=== PATIENT | female | born 1945 | race African-American/Black ===

== ENCOUNTER 2018-10-18 14:16 | Observation (INO) | payer OTHER, MEDICARE ==
[2018-10-18 14:33] VITALS: BMI 25.7
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
[2018-10-18 16:14] LABS: URINE APPEARANCE CLEAR; URINE BILIRUBIN NEGATIVE (<2.0 mg/dL); URINE COLOR LTYELLOW; URINE GLUCOSE (UA) NEGATIVE (NEGATIVE); URINE KETONE NEGATIVE (NEGATIVE); URINE LEUK ESTERASE NEGATIVE (NEGATIVE); URINE NITRITE NEGATIVE (NEGATIVE); URINE PROTEIN NEGATIVE (NEGATIVE); URINE UROBILINOGEN NEGATIVE mg/dL (0.2-1.0)
[2018-10-18 16:18] LABS: EPI CELLS RARE /HPF (FEW); URINE HYALINE CAST 4 /lpf; URINE MUCUS RARE
[2018-10-18 16:18] LABS: HEMATOCRIT 29.3 % (32.4-45.2); HEMOGLOBIN 10.3 GM/dL (10.7-15.3); MCH 29.6 pg (25.7-33.7); MCHC 35.1 g/dl (32.0-36.0); MEAN CELL VOLUME 84.3 fl (80-96); MEAN PLT VOLUME 7.1 fl (7.5-11.1); PLATELET COUNT 223 K/MM3 (134-434); RBC 3.47 M/mm3 (3.60-5.2); RDW 14.3 % (11.6-15.6); WHITE BLOOD COUNT 4.8 K/mm3 (4.0-10.0)
[2018-10-18 16:51] LABS: ALBUMIN 3.3 g/dl (3.4-5.0); ALK PHOS 76 U/L (45-117); ANION GAP 8 MMOL/L (8-16); BILIRUBIN,TOTAL 0.2 mg/dL (0.2-1); BLOOD UREA NITROGEN 33 mg/dL (7-18); CALCIUM 8.7 mg/dL (8.5-10.1); CHLORIDE 106 mmol/L (98-107); CO2 26 mmol/L (21-32); CREATININE 1.4 mg/dL (0.55-1.3); GLUCOSE,RANDOM 110 mg/dL (74-106); SGOT/AST 29 U/L (15-37); SGPT/ALT 27 U/L (13-61); SODIUM 140 mmol/L (136-145); TOT PROT 6.9 g/dl (6.4-8.2)
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
[2018-10-18] MEDS ORDERED: SODIUM CHLORIDE 1,000 ML IV SCH (21:30)
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
[2018-10-19] MEDS ORDERED: GABAPENTIN 300 MG CAPSULE (FP) PO ONE (02:29)
[2018-10-19] MEDS ORDERED: NEBIVOLOL 10 MG TABLET (FP) PO SCH ×2 (02:30→22:00)
[2018-10-19 05:55] LABS: BASO % 0.5 % (0-2.0); EOS % 4.7 % (0-4.5); HEMATOCRIT 30.8 % (32.4-45.2); HEMOGLOBIN 10.2 GM/dL (10.7-15.3); LYMPH % 36.1 % (8-40); MCH 27.9 pg (25.7-33.7); MEAN CELL VOLUME 84.3 fl (80-96); MEAN PLT VOLUME 6.9 fl (7.5-11.1); MONO % 7.7 % (3.8-10.2); PLATELET COUNT 214 K/MM3 (134-434); RBC 3.65 M/mm3 (3.60-5.2); RDW 14.2 % (11.6-15.6); WHITE BLOOD COUNT 5.7 K/mm3 (4.0-10.0)
[2018-10-19] MEDS ORDERED: HEPARIN NA (PORCINE) 5,000 UNITS/ML 1ML VIAL ONE (06:08)
[2018-10-19 06:28] LABS: CHOLESTEROL 212 mg/dL (50-200); HDL CHOLESTEROL 93 mg/dL (40-60); TRIGLYCERIDES 53 mg/dL (0-150)
[2018-10-19] MEDS: HEPARIN NA (PORCINE) 5,000 UNITS/ML 1ML VIAL SQ SCH ×2 (06:33→14:13)
[2018-10-19 06:38] LABS: ALBUMIN 3.2 g/dl (3.4-5.0); ALK PHOS 73 U/L (45-117); ANION GAP 8 MMOL/L (8-16); BILIRUBIN,TOTAL 0.3 mg/dL (0.2-1); BLOOD UREA NITROGEN 25 mg/dL (7-18); CALCIUM 8.6 mg/dL (8.5-10.1); CHLORIDE 106 mmol/L (98-107); CO2 26 mmol/L (21-32); CREATININE 1.1 mg/dL (0.55-1.3); GLUCOSE,RANDOM 89 mg/dL (74-106); MAGNESIUM 2.1 mg/dL (1.8-2.4); PHOSPHOROUS 4.1 mg/dL (2.5-4.9); POTASSIUM 3.8 mmol/L (3.5-5.1); SGOT/AST 29 U/L (15-37); SGPT/ALT 26 U/L (13-61); SODIUM 139 mmol/L (136-145); TOT PROT 6.7 g/dl (6.4-8.2)
--- NOTE | 2018-10-19 08:53 | PN ---
Progress Note (short form) - Note Progress Note: Dr. Robles to document today. Having Echo; was difficult to arouse from sleep yesterday.
[2018-10-19 09:24] VITALS: TEMP 98.5
[2018-10-19] MEDS ORDERED: MULTIVITAMINS (DAILY MVI) TABLET (FP) PO SCH (10:00)
--- NOTE | 2018-10-19 11:10 | ECHO ---
Version: 1 Name: SULAIMAN DOMINGUEZ Exam: Adult Echocardiogram Study Date: 10/19/2018, 8:09 AM Age: 73 Years MMode/2D Measurements & Calculations IVSd: 0.91 cm LVIDs: 3.2 cm LVIDd: 5.2 cm LVPWd: 0.88 cm ACS: 1.54 cm Ao root diam: 2.9 cm LA dimension: 4.0 cm Doppler Measurements & Calculations MV E max fady: 59.2 cm/sec Med E/e': 11.9 MV A max fady: 57.8 cm/sec Med Peak E' Fady: 5.0 cm/sec MV E/A: 1.03 Lat E/e': 6.5 Lat Peak E' Fady: 9.1 cm/sec MR max P.2 mmHg Ao max P.3 mmHg Ao mean P.0 mmHg Ao V2 max: 134.8 cm/sec PI end-d fady: 126.2 cm/sec TR max fady: 195.1 cm/sec TR max P.4 mmHg Procedure A two-dimensional transthoracic echocardiogram with color flow and Doppler was performed. Left Ventricle The left ventricular size, thickness and function are normal. The left ventricular ejection fraction is normal. E/A reversal consistent with but not diagnostic of poor LV compliance. The left ventricular wall motion is normal. Right Ventricle The right ventricle is normal in size and function. Atria The left atrium is mildly dilated. The right atrium is mildly dilated. Mitral Valve There is mild mitral valve thickening. There is no mitral valve stenosis. There is moderate to sever e mitral regurgitation. Tricuspid Valve The tricuspid valve is normal in structure and function. There is no tricuspid stenosis. There is mi ld tricuspid regurgitation. Right ventricular systolic pressure is normal. Aortic Valve The aortic valve is normal in structure and function. No hemodynamically significant valvular aortic stenosis. No aortic regurgitation is present. Pulmonic Valve The pulmonic valve is not well visualized. There is no pulmonic valvular stenosis. Moderate pulmonic valvular regurgitation. Great Vessels The aortic root is normal size. Pericardium/Pleura There is no pericardial effusion. Summary Statements The left ventricular size, thickness and function are normal The left ventricular ejection fraction is normal. The right ventricle is normal in size and function. There is mild mitral valve thickening. There is moderate to severe mitral regurgitation. The left atrium is mildly dilated. The right atrium is mildly dilated. The left ventricular wall motion is normal. There is mild tricuspid regurgitation. Right ventricular systolic pressure is normal. E/A reversal consistent with but not diagnostic of poor LV compliance MD Ramirez Austin 10/19/2018, 11:10 AM Ordering Physician: JAMES ZUÑIGA Performed By: Destiny Jackson
--- NOTE | 2018-10-19 12:54 | DS ---
Physical Examination Vital Signs: Vital Signs Temperature 98.5 F 10/19/18 09:23 Pulse Rate 64 10/19/18 09:35 Respiratory Rate 16 10/19/18 09:35 Blood Pressure 147/75 10/19/18 09:35 O2 Sat by Pulse Oximetry (%) 99 10/19/18 09:35 Constitutional: Yes: Well Nourished, No Distress, Calm Cardiovascular: Yes: WNL, Regular Rate and Rhythm Respiratory: Yes: WNL, Regular, CTA Bilaterally. No: Accessory Muscle Use, Tachypnea, Wheezes Gastrointestinal: Yes: WNL, Normal Bowel Sounds, Soft. No: Distention, Tenderness, Vomiting Renal/: Yes: WNL Musculoskeletal: Yes: WNL Extremities: Yes: WNL Edema: No Integumentary: Yes: WNL Neurological: Yes: WNL, Alert, Oriented Psychiatric: Yes: WNL, Alert, Oriented Labs: CBC, BMP 10/19/18 05:25 10/19/18 05:25 Discharge Summary Reason For Visit: SYNCOPE Current Active Problems Syncope (Acute) Hospital Course: 73 year old female admitted for evaluation of reduced responsiveness at home. All cardiac/neuro work up negative. Head CT/echo, chest xray without acute findings. Mild jeffrey noted which resolved w/ ivf. Otherwise, pt without any complaints, vitals stable, labs unremarkable. Pt requesting to go home. Pt is medically stable for discharge home. Follow up as directed Condition: Stable - Instructions Diet, Activity, Other Instructions: resume activity, diet as prior continue home meds f/u as directed Referrals: Devaughn Sandoval MD [Primary Care Provider] - 1 Week Disposition: HOME - Home Medications Comprehensive Discharge Medication List: Ambulatory Orders Aspirin [ASA -] 81 mg PO DAILY 05/21/13 Cholecalciferol (Vitamin D3) [Vitamin D] 1,000 unit PO DAILY #0 capsule Multivitamins [Multivit ([facility] Formulary)] 1 each PO DAILY #1 tab 05/29/13 Olmesartan/Hydrochlorothiazide [Benicar Hct 40-12.5MG Tab -] 1 tab PO DAILY #0 tablet 05/29/13 [place] Oil/[place]-3 Fatty Acids [Fish Oil 500 mg Softgel] 2 each PO DAILY #0 capsule 05/29/13 Gabapentin [Neurontin -] 200 mg PO BID 10/18/18 Gabapentin [Neurontin] 300 mg PO HS 10/18/18 Nebivolol [Bystolic -] 20 mg PO HS 10/18/18 Pramipexole Dihydrochloride [Mirapex -] 0.5 mg PO DAILY 10/18/18 Pramipexole Dihydrochloride [Mirapex -] 1.5 mg PO DAILY 10/19/18
[2018-10-19 15:43] VITALS: BP 120/66; PULSE 73
--- NOTE | 2018-10-19 16:53 | EKG ---
Test Reason : Blood Pressure : / mmHG Vent. Rate : 068 BPM Atrial Rate : 068 BPM P-R Int : 190 ms QRS Dur : 086 ms QT Int : 400 ms P-R-T Axes : 068 015 028 degrees QTc Int : 425 ms NORMAL SINUS RHYTHM T WAVE ABNORMALITY, CONSIDER ANTERIOR ISCHEMIA ABNORMAL ECG WHEN COMPARED WITH ECG OF 16-NOV-2013 10:29, NO SIGNIFICANT CHANGE WAS FOUND Confirmed by JANELLE SCHULTZ MD ([id number]) on 10/19/2018 4:53:29 PM Referred By: Confirmed By:JANELLE SCHULTZ MD
[2018-10-19] MEDS ORDERED: GABAPENTIN 300 MG CAPSULE (FP) PO SCH (22:00)
[2018-10-20 04:21] LABS: SERUM IRON SATURATION 17 % (15-55); TOTAL IRON BINDING CAPACITY 345 ug/dL (250-450); UIBC 288 ug/dL (118-369)
== END 2018-10-19 15:30 | disposition home or self-care (01) ==
LOC: JER 14:16 → JERBED 18:05 → UNDOADMOB 18:15
PROVIDERS: ADMIT Internal Medicine; ATTEND Internal Medicine
PROC: 3E0337Z Introduction of Electrolytic and Water Balance Substance into Peripheral Vein, Percutaneous Approach (ICD-10-PCS; principal; 2018-10-18)
DX: R55 Syncope and collapse (principal); I10 Essential (primary) hypertension; K21.9 Gastro-esophageal reflux disease without esophagitis; D64.89 Other specified anemias; N17.9 Acute kidney failure, unspecified; Z91.041 Radiographic dye allergy status; Z79.82 Long term (current) use of aspirin; Z98.1 Arthrodesis status
CPT/HCPCS: 36415; 70450-TC; 71045-TC-FY; 80053; 80061; 81003; 81015; 82728; 83540; 83550; 83721; 83735; 84100; 84443; 84466; 84484; 85025; 85027; 85044; 93005; 93010; 93306-TC; 99285-25; G0378; J1644; J7030

== ENCOUNTER 2019-04-11 11:34 | Emergency (ER) | payer OTHER, MEDICARE | END 2019-04-11 14:27 | disposition home or self-care (01) | LOC: FER 11:34 ==

== ENCOUNTER 2019-09-12 17:01 | Emergency (ER) | payer OTHER, MEDICARE ==
[2019-09-12 17:11] VITALS: BMI 24.4
--- NOTE | 2019-09-12 17:50 | PDOC ---
Attending Attestation - Resident Resident Name: Celeste Gamboa - ED Attending Attestation I have performed the following: I have examined & evaluated the patient, The case was reviewed & discussed with the resident, I agree w/resident's findings & plan, Exceptions are as noted - HPI HPI: 09/12/19 18:00 Ms Rossi HTN, GERD p/w a period of less responsiveness while at home today Patient was in her usual state of health all day, was out shopping with her sisters. She had a cup of coffee in the morning, and a small cup of soda with her meal After she arrived home, her sister found her slumped over in the chair, unresponsive According to the patient, she heard everything that her sister said and in fact attempted to respond According to the patient's sister, the patient had no verbal responsiveness EMS was called and upon their arrival, her systolic blood pressure was 70 IV was placed, patient was started on IV fluid She currently states she feels much better She denies any chest pain, palpitations, headache, focal weakness or numbness No recent fevers or chills No new shortness of breath No recent travel 09/12/19 18:18 - Physicial Exam PE: 09/12/19 17:50 GENERAL: The patient is in no acute distress, ambulatory with a steady gait. ENT: Ears normal, nares patent, oropharynx clear without exudates. Moist mucous membranes. NECK: Normal range of motion, supple LUNGS: Breath sounds equal, clear to auscultation bilaterally. No wheezes, and no crackles. HEART:Regular rate and rhythm, normal S1 and S2 without murmur, rub or gallop. ABDOMEN: Soft, nontender, normoactive bowel sounds. EXTREMITIES: Normal range of motion, no edema. NEUROLOGICAL: Cranial nerves II through XII grossly intact. Normal speech. No focal neurological deficits. SKIN: Warm, Dry, normal turgor, no rashes or lesions noted. 09/12/19 18:02 - Medical Decision Making 09/12/19 18:31 73-year-old female presenting to the emergency department after what is possibly vasovagal syncope Differential diagnosis also includes arrhythmia, ACS, dehydration We will do: Labs EKG Patient refusing head CT Patient refusing admission Labs pending Pt signed out to Dr Gerard
[2019-09-12 17:55] VITALS: BP 158/94; PULSE 80; TEMP 97.9
--- NOTE | 2019-09-12 18:35 | PDOC ---
History of Present Illness - General Chief Complaint: Blood Pressure Problem Stated Complaint: BLOOD PRESSURE PROBLEM Time Seen by Provider: 09/12/19 17:13 - History of Present Illness Initial Comments: HPI: 73yo F with PMH of HTN, GERD, multiple back surgeries presenting after a period of responsiveness. Sister is at the bedside providing collateral history. Patient states that she spent the morning outside of the house and shopping. She did eat today, including a [employer] burger/soda/fries, but feels she did not drink an adequate amount. In addition, patient is on several medications which make her feel drowsy. The patient and her sister came home. Her sister reports that she found the patient slumped in a chair and appeared "lethargic." Despite calling her name several times, the patient did not respond. The patient reports remembering her sister call her name and states she did in fact respond saying "I can't hear you because of the TV" however the sister does not recall this. The sister called - and EMS noted patient's blood pressure to be low, 70s systolic. Patient feels at her baseline. Denies chest pain or shortness of breath. No recent travel or sick contacts. No fevers or chills. PCP: Dr. Sandoval Cardio: Dr. Joiner ROS: Constitutional: no fever, no chills HEENT: no throat pain, no dysphagia Cardiovascular: no chest pain, no palpitations Respiratory: no cough, no cyanosis Gastrointestinal: no abdominal pain, no nausea Genitourinary: no dysuria, no hematuria Musculoskeletal: no myalgia, no arthralgia Skin: no rash, no itching Neurologic: no headache, no weakness PE: General: Awake, alert, and fully oriented, in no acute distress Head: No signs of trauma Eyes: EOMI, sclera anicteric ENT: Moist mucus membranes Neck: Normal ROM, supple Lungs: Lungs clear, Normal breath sounds Cardio: Regular rhythm, S1 and S2 present Abdomen: Soft, nontender. No guarding, no rebound, no masses Extremities: Normal range of motion, Distal pulses present SKIN: Warm, Dry, normal turgor Neurologic: Cranial nerves II through XII intact. Normal speech, sensation, strength, coordination, and gait. ED Course/MDM: DDX including but not limited to dehydration, medication adverse affect, metabolic derangement, anemia, vasovagal syncope, cardiogenic syncope, metabolic syncope, neurogenic syncope, postural syncope Triage VSS Labs, EKG, CXR Patient given 500cc fluids by EMS (which may be confounding orthostatics test) Supine BP: 157/81 HR: 80 Sitting BP: 158/94 HR: 79 Standing BP: 173/89 HR: 83 Negative for orthostatic hypotension Patient is adamant that she will not stay overnight in the hospital; amenable to evaluation but states, "I want to be home tonight." 09/12/19 18:19 EKG: rate 76, QTc 429, NSR 09/12/19 18:37 CBC WBC 6.0 K/mm3 (4.0-10.0) 09/12/19 18:40 RBC 3.79 M/mm3 (3.60-5.2) 09/12/19 18:40 Hgb 10.8 GM/dL (10.7-15.3) 09/12/19 18:40 Hct 33.2 % (32.4-45.2) 09/12/19 18:40 MCV 87.4 fl (80-96) 09/12/19 18:40 MCH 28.4 pg (25.7-33.7) 09/12/19 18:40 MCHC 32.5 g/dl (32.0-36.0) 09/12/19 18:40 RDW 13.8 % (11.6-15.6) 09/12/19 18:40 Plt Count 221 K/MM3 (134-434) 09/12/19 18:40 MPV 7.6 fl (7.5-11.1) D 09/12/19 18:40 Absolute Neuts (auto) 4.0 K/mm3 (1.5-8.0) 09/12/19 18:40 Neutrophils % 67.1 % (42.8-82.8) D 09/12/19 18:40 Lymphocytes % 22.2 % (8-40) D 09/12/19 18:40 Monocytes % 8.5 % (3.8-10.2) 09/12/19 18:40 Eosinophils % 1.8 % (0-4.5) 09/12/19 18:40 Basophils % 0.4 % (0-2.0) 09/12/19 18:40 Nucleated RBC % 0 % (0-0) 09/12/19 18:40 No leukocytosis or anemia CMP Sodium 140 mmol/L (136-145) 09/12/19 19:00 Potassium 3.9 mmol/L (3.5-5.1) 09/12/19 19:00 Chloride 107 mmol/L (98-107) 09/12/19 19:00 Carbon Dioxide 26 mmol/L (21-32) 09/12/19 19:00 Anion Gap 7 MMOL/L (8-16) L 09/12/19 19:00 BUN 23.5 mg/dL (7-18) H 09/12/19 19:00 Creatinine 1.3 mg/dL (0.55-1.3) 09/12/19 19:00 Est GFR (CKD-EPI)AfAm 46.47 09/12/19 19:00 Est GFR (CKD-EPI)NonAf 40.10 09/12/19 19:00 Random Glucose 101 mg/dL (74-106) 09/12/19 19:00 Calcium 9.1 mg/dL (8.5-10.1) 09/12/19 19:00 Total Bilirubin 0.2 mg/dL (0.2-1) 09/12/19 19:00 AST 29 U/L (15-37) 09/12/19 19:00 ALT 29 U/L (13-61) 09/12/19 19:00 Alkaline Phosphatase 76 U/L (45-117) 09/12/19 19:00 Creatine Kinase 220 U/L (26-192) H 09/12/19 18:40 Creatine Kinase Index 1.6 % (0.0-5.0) 09/12/19 18:40 CK-MB (CK-2) 3.7 ng/mL (0.5-3.6) H 09/12/19 18:40 Troponin I < 0.02 ng/ml (0.00-0.05) 09/12/19 18:40 B-Natriuretic Peptide 2157.1 pg/ml (5-450) H 09/12/19 18:40 Total Protein 6.9 g/dl (6.4-8.2) 09/12/19 19:00 Albumin 3.5 g/dl (3.4-5.0) 09/12/19 19:00 Electrolytes unremarkable Normal Cr no Transaminitis Tpn undetectable BNP elevated; patient has a history of CHF, I do not see overt signs of overload on the physical exam UA normal CXR: "EXAM#: TYPE/EXAM: RESULT: [id number] RAD/CHEST PA LAT Chest: Possible syncope 2 views of the chest have been submitted. There are clear lungs, normal mediastinum sharp angles. The bones and soft tissues are intact. There is lower spinal fusion hardware. Since 10/18/2018, there is a better inspiration and no sign of an acute process. " Though workup is negative, history is concerning for syncope. Given age and risk factors, I recommended telemetry observation. Patient is of sound mind and has capacity to make decisions. Benefits/risks explained to patient and she voiced understanding. Patient decided to leave against medical advice. To sign AMA form. 09/12/19 20:32 Patient signed AMA form Left AMA 09/12/19 20:53 Past History - Past Medical History Allergies/Adverse Reactions: Allergies Allergy/AdvReac Type Severity Reaction Status Date / Time No Known Drug Allergies Allergy Verified 10/18/18 21:25 CAT SCAN DYE Allergy Intermediate Rash Uncoded 10/18/18 14:25 iv dye Allergy Mild Hives Uncoded 10/18/18 14:25 Home Medications: Ambulatory Orders Aspirin [ASA -] 81 mg PO DAILY 05/21/13 Cholecalciferol (Vitamin D3) [Vitamin D] 1,000 unit PO DAILY #0 capsule Multivitamins [Multivit ([facility] Formulary)] 1 each PO DAILY #1 tab 05/29/13 Olmesartan/Hydrochlorothiazide [Benicar Hct 40-12.5MG Tab -] 1 tab PO DAILY #0 tablet 05/29/13 Gabapentin [Neurontin -] 300 mg PO HS 10/18/18 Nebivolol [Bystolic -] 20 mg PO HS 10/18/18 Pramipexole Dihydrochloride [Mirapex -] 0.5 mg PO DAILY 10/18/18 Furosemide [Lasix] 20 mg PO DAILY 04/11/19 Potassium Chloride [K-Tab ER] 10 meq PO DAILY 04/11/19 Ranitidine HCl [Zantac] 150 mg PO DAILY 04/11/19 Anemia: Yes Asthma: No Cancer: No Cardiac Disorders: Yes (HYPERTENSION) CVA: No COPD: No CHF: No Dementia: No Diabetes: No GI Disorders: Yes (ZANTAC FOR PEPTIC ULCERS 2010) Disorders: No HTN: Yes Hypercholesterolemia: No Liver Disease: No Seizures: No Thyroid Disease: No - Surgical History Abdominal Surgery: No Appendectomy: No Cardiac Surgery: No Cholecystectomy: No Lung Surgery: No Neurologic Surgery: Yes (LAMINECTOMY X2) Orthopedic Surgery: Yes (SPINAL FUSION 2009/BILATERAL BUNIONECTOMY ) - Psycho Social/Smoking Cessation Hx Smoking Status: No Smoking History: Never smoked Have you smoked in the past 12 months: No Number of Cigarettes Smoked Daily: 0 If you are a former smoker, when did you quit?: 1985 Hx Alcohol Use: Yes Drug/Substance Use Hx: No Substance Use Type: Alcohol Hx Substance Use Treatment: No *Physical Exam - Vital Signs Last Vital Signs Temp Pulse Resp BP Pulse Ox 97.9 F 80 12 158/94 100 09/12/19 17:53 09/12/19 17:53 09/12/19 17:53 09/12/19 17:53 09/12/19 17:53 ED Treatment Course - LABORATORY CBC & Chemistry Diagram: 09/12/19 18:40 09/12/19 19:00 - RADIOLOGY Radiology Studies Ordered: Category Date Time Status CHEST PA & LAT [RAD] Stat Radiology 09/12/19 17:55 Ordered Discharge - Discharge Information Problems reviewed: Yes Clinical Impression/Diagnosis: Lethargy Disposition: AGAINST MEDICAL ADVICE - Follow up/Referral - Patient Discharge Instructions Additional Instructions: As discussed you may have undiagnosed illness or medical diagnosis that if left untreated can lead to multiple complications including, but not limited to permanent disability and . Should you reconsider you should return to the emergency department for evaluation. Follow-up with your primary care provider within 72 hours to discuss this ED visit and to further evaluate your symptoms. Call today or tomorrow morning and make an appointment. Your workup is not complete until you do so. Immediate medical attention is required if you have: any chest pain, palpitations, shortness of breath, severe headaches, changes in vision, episodes of fainting, focal numbness or weakness, any severe abdominal pain, any black tarry stool, or any new or concerning symptoms. If you think you are having an emergency, call for emergency medical services or present to the emergency department right away. - Post Discharge Activity
[2019-09-12 19:17] LABS: BASO % 0.4 % (0-2.0); EOS % 1.8 % (0-4.5); HEMATOCRIT 33.2 % (32.4-45.2); HEMOGLOBIN 10.8 GM/dL (10.7-15.3); LYMPH % 22.2 % (8-40); MCH 28.4 pg (25.7-33.7); MCHC 32.5 g/dl (32.0-36.0); MEAN CELL VOLUME 87.4 fl (80-96); MEAN PLT VOLUME 7.6 fl (7.5-11.1); MONO % 8.5 % (3.8-10.2); NEUT % 67.1 % (42.8-82.8); PLATELET COUNT 221 K/MM3 (134-434); RBC 3.79 M/mm3 (3.60-5.2); RDW 13.8 % (11.6-15.6)
[2019-09-12 19:30] LABS: PROTHROMBIN TIME (PATIENT) 11.8 SEC (9.7-13.0)
[2019-09-12 19:37] LABS: URINE APPEARANCE CLEAR; URINE BILIRUBIN NEGATIVE (NEGATIVE); URINE COLOR YELLOW; URINE GLUCOSE (UA) NEGATIVE (NEGATIVE); URINE KETONE NEGATIVE (NEGATIVE); URINE LEUK ESTERASE NEGATIVE (NEGATIVE); URINE NITRITE NEGATIVE (NEGATIVE); URINE PROTEIN NEGATIVE (NEGATIVE); URINE UROBILINOGEN 0.2 mg/dL (0.2-1.0)
[2019-09-12 19:38] LABS: N-TERMINAL BNP 2157.1 pg/ml (5-450)
[2019-09-12 20:00] LABS: ALBUMIN 3.5 g/dl (3.4-5.0); BILIRUBIN,TOTAL 0.2 mg/dL (0.2-1); BLOOD UREA NITROGEN 23.5 mg/dL (7-18); CALCIUM 9.1 mg/dL (8.5-10.1); CREATININE 1.3 mg/dL (0.55-1.3); POTASSIUM 3.9 mmol/L (3.5-5.1); TOT PROT 6.9 g/dl (6.4-8.2)
--- NOTE | 2019-09-13 12:47 | EKG ---
Test Reason : Blood Pressure : / mmHG Vent. Rate : 076 BPM Atrial Rate : 076 BPM P-R Int : 170 ms QRS Dur : 084 ms QT Int : 386 ms P-R-T Axes : 067 030 051 degrees QTc Int : 434 ms NORMAL SINUS RHYTHM POSSIBLE LEFT ATRIAL ENLARGEMENT BORDERLINE ECG WHEN COMPARED WITH ECG OF 11-APR-2019 12:04, NO SIGNIFICANT CHANGE WAS FOUND Confirmed by PETTY SUGGS, MARIELLA ([id number]) on 09/13/2019 12:46:58 PM Referred By: Confirmed By:MARIELLA DOVE MD
== END 2019-09-12 21:42 | disposition left against medical advice (07) ==
LOC: JER 17:01
DX: I95.9 Hypotension, unspecified (principal); R53.83 Other fatigue; I10 Essential (primary) hypertension; D64.9 Anemia, unspecified; Z87.11 Personal history of peptic ulcer disease; Z98.1 Arthrodesis status; Z91.041 Radiographic dye allergy status
CPT/HCPCS: 36415; 71046-TC-FY; 80053; 81003; 82550; 82553; 83880; 84484; 85025; 85610; 87086; 93005; 93010; 99284-25

== ENCOUNTER 2020-09-11 19:40 | Emergency (ER) | payer OTHER, MEDICARE | END 2020-09-11 19:45 | disposition home or self-care (01) | LOC: JVIRT 19:40 | DX: Z03.818 Encounter for observation for suspected exposure to other biological agents ruled out (principal) | CPT/HCPCS: C9803; Q3014-GT; U0003 ==

== ENCOUNTER 2020-11-12 19:10 | Inpatient (IN) | payer OTHER, MEDICARE ==
[2020-11-12 19:48] VITALS: BMI 25.0
[2020-11-12] MEDS ORDERED: FUROSEMIDE 40 MG/4 ML INJECTABLE VIAL IVPUSH ONE (20:41)
[2020-11-12] MEDS ORDERED: FUROSEMIDE 40 MG/4 ML INJECTABLE VIAL ONE (21:33)
[2020-11-12 21:43] LABS: INR 1.03 (0.83-1.09); PROTHROMBIN TIME (PATIENT) 12.5 SEC (9.7-13.0)
[2020-11-12 21:46] LABS: ACTIVATED PTT 28.6 SECONDS (25.2-36.5)
[2020-11-12 21:48] LABS: POTASSIUM 3.8 mmol/L (3.5-5.1)
[2020-11-12 21:50] LABS: CALCIUM 9.2 mg/dL (8.5-10.1)
[2020-11-12 21:51] LABS: ALBUMIN 3.8 g/dl (3.4-5.0); BLOOD UREA NITROGEN 20.2 mg/dL (7-18)
[2020-11-12 21:54] LABS: CREATININE 1.2 mg/dL (0.55-1.3)
[2020-11-12 21:56] LABS: BILIRUBIN,TOTAL 0.4 mg/dL (0.2-1); TOT PROT 7.8 g/dl (6.4-8.2)
[2020-11-12 21:59] LABS: N-TERMINAL BNP 11169.9 pg/ml (5-450)
[2020-11-12 23:39] LABS: URINE APPEARANCE CLEAR; URINE BILIRUBIN NEGATIVE (NEGATIVE); URINE COLOR YELLOW; URINE GLUCOSE (UA) NEGATIVE (NEGATIVE); URINE KETONE NEGATIVE (NEGATIVE); URINE LEUK ESTERASE NEGATIVE (NEGATIVE); URINE NITRITE NEGATIVE (NEGATIVE); URINE PROTEIN NEGATIVE (NEGATIVE); URINE UROBILINOGEN 0.2 mg/dL (0.2-1.0)
[2020-11-13] MEDS ORDERED: FUROSEMIDE 40 MG/4 ML INJECTABLE VIAL IVPUSH ONE (00:06)
[2020-11-13] MEDS ORDERED: FUROSEMIDE 40 MG/4 ML INJECTABLE VIAL ONE (01:06)
[2020-11-13] MEDS ORDERED: ACETAMINOPHEN 500 MG TABLET (FP) PO ONE (04:49)
[2020-11-13 06:57] LABS: BASO % 0.6 % (0-2.0); EOS % 3.1 % (0-4.5); HEMATOCRIT 31.7 % (32.4-45.2); HEMOGLOBIN 10.5 GM/dL (10.7-15.3); LYMPH % 27.1 % (8-40); MCH 28.5 pg (25.7-33.7); MCHC 33.2 g/dl (32.0-36.0); MEAN CELL VOLUME 85.7 fl (80-96); MEAN PLT VOLUME 7.6 fl (7.5-11.1); MONO % 9.8 % (3.8-10.2); NEUT % 59.4 % (42.8-82.8); PLATELET COUNT 204 K/MM3 (134-434); WHITE BLOOD COUNT 5.7 K/mm3 (4.0-10.0)
[2020-11-13] MEDS: GABAPENTIN 300 MG CAPSULE PO SCH ×2 (07:13→21:15)
[2020-11-13 07:35] LABS: IRON SERUM 39 ug/dL (50-175); TOTAL IRON BINDING CAPACITY 364 ug/dL (250-450)
[2020-11-13 07:42] LABS: POTASSIUM 3.6 mmol/L (3.5-5.1)
[2020-11-13 07:47] LABS: ALBUMIN 3.6 g/dl (3.4-5.0); CALCIUM 8.8 mg/dL (8.5-10.1)
[2020-11-13 07:48] LABS: BLOOD UREA NITROGEN 21.8 mg/dL (7-18); MAGNESIUM 2.1 mg/dL (1.8-2.4)
[2020-11-13 07:50] LABS: CREATININE 1.3 mg/dL (0.55-1.3); PHOSPHOROUS 4.2 mg/dL (2.5-4.9)
[2020-11-13 07:51] LABS: BILIRUBIN,TOTAL 0.4 mg/dL (0.2-1); TOT PROT 7.4 g/dl (6.4-8.2)
[2020-11-13] MEDS: ASPIRIN COATED 81 MG TABLET.EC PO SCH (09:28)
[2020-11-13] MEDS: FUROSEMIDE 40 MG/4 ML INJECTABLE VIAL IVPUSH SCH (09:28)
[2020-11-13] MEDS: ENOXAPARIN NA (PORCINE) 40 MG/0.4 ML DISP.SYRIN SQ SCH (09:28)
[2020-11-13] MEDS: hydrALAZINE HCL 50 MG TABLET (FP) PO SCH ×2 (09:28→21:15)
[2020-11-13] MEDS ORDERED: PT OWN MED DRAWER 7, Y5N ONE (21:08)
[2020-11-13] MEDS: NEBIVOLOL 10 MG TABLET (FP) PO SCH (21:13)
[2020-11-13] MEDS: PRAMIPEXOLE DIHYDROCHLORIDE 0.5 MG TABLET PO SCH (21:14)
[2020-11-14] MEDS: GABAPENTIN 300 MG CAPSULE PO SCH ×2 (06:27→21:55)
[2020-11-14 08:25] LABS: POTASSIUM 3.7 mmol/L (3.5-5.1)
[2020-11-14 08:31] LABS: HEMATOCRIT 29.7 % (32.4-45.2); HEMOGLOBIN 10.1 GM/dL (10.7-15.3); MEAN CELL VOLUME 85.3 fl (80-96); PLATELET COUNT 199 K/MM3 (134-434); RBC 3.48 M/mm3 (3.60-5.2); WHITE BLOOD COUNT 5.9 K/mm3 (4.0-10.0)
[2020-11-14 08:39] LABS: CALCIUM 8.8 mg/dL (8.5-10.1)
[2020-11-14 08:40] LABS: BLOOD UREA NITROGEN 21.9 mg/dL (7-18)
[2020-11-14 08:43] LABS: CREATININE 1.1 mg/dL (0.55-1.3)
[2020-11-14] MEDS: ENOXAPARIN NA (PORCINE) 40 MG/0.4 ML DISP.SYRIN SQ SCH (11:11)
[2020-11-14] MEDS: ASPIRIN COATED 81 MG TABLET.EC PO SCH (11:12)
[2020-11-14] MEDS: FUROSEMIDE 40 MG/4 ML INJECTABLE VIAL IVPUSH SCH (11:12)
[2020-11-14] MEDS: PANTOPRAZOLE 40 MG TABLET PO SCH (11:13)
[2020-11-14] MEDS: hydrALAZINE HCL 50 MG TABLET (FP) PO SCH ×2 (11:13→21:55)
[2020-11-14] MEDS: NEBIVOLOL 10 MG TABLET (FP) PO SCH ×2 (11:13→21:56)
[2020-11-14 11:57] LABS: RETICULOCYTES 1.67 % (0.5-1.5)
[2020-11-14 14:26] VITALS: TEMP 97.9
[2020-11-14] MEDS: PRAMIPEXOLE DIHYDROCHLORIDE 0.5 MG TABLET PO SCH (21:55)
[2020-11-14] MEDS ORDERED: LATANOPROST 0.005% OPHTH SOLN 2.5ML BOTTLE OD SCH ×2 (22:00)
[2020-11-15] MEDS: GABAPENTIN 300 MG CAPSULE PO SCH (06:26)
[2020-11-15 08:30] LABS: HEMATOCRIT 33.4 % (32.4-45.2); HEMOGLOBIN 11.1 GM/dL (10.7-15.3); MCH 28.4 pg (25.7-33.7); MCHC 33.2 g/dl (32.0-36.0); MEAN CELL VOLUME 85.6 fl (80-96); MEAN PLT VOLUME 8.1 fl (7.5-11.1); PLATELET COUNT 239 K/MM3 (134-434); RBC 3.91 M/mm3 (3.60-5.2); RDW 13.9 % (11.6-15.6); WHITE BLOOD COUNT 5.8 K/mm3 (4.0-10.0)
[2020-11-15 08:58] LABS: POTASSIUM 3.6 mmol/L (3.5-5.1)
[2020-11-15 09:06] LABS: BLOOD UREA NITROGEN 20.4 mg/dL (7-18); CALCIUM 8.9 mg/dL (8.5-10.1)
[2020-11-15 09:10] LABS: CREATININE 1.1 mg/dL (0.55-1.3)
[2020-11-15] MEDS ORDERED: LOSARTAN POTASSIUM 50 MG TABLET PO SCH (10:00)
[2020-11-15] MEDS: ASPIRIN COATED 81 MG TABLET.EC PO SCH (10:42)
[2020-11-15] MEDS: FUROSEMIDE 40 MG/4 ML INJECTABLE VIAL IVPUSH SCH (10:42)
[2020-11-15] MEDS: PANTOPRAZOLE 40 MG TABLET PO SCH (10:42)
[2020-11-15] MEDS: ENOXAPARIN NA (PORCINE) 40 MG/0.4 ML DISP.SYRIN SQ SCH (10:43)
[2020-11-15] MEDS: hydrALAZINE HCL 50 MG TABLET (FP) PO SCH (11:03)
[2020-11-15] MEDS: NEBIVOLOL 10 MG TABLET (FP) PO SCH (11:04)
[2020-11-15 12:52] VITALS: BP 116/62; PULSE 68
== END 2020-11-15 14:49 | disposition home or self-care (01) | DRG 292 ==
LOC: JER 19:10 → JERBED 21:16 → J7W 11-13 04:14
PROVIDERS: ADMIT Internal Medicine; ATTEND Internal Medicine
DX: I11.0 Hypertensive heart disease with heart failure (principal); E85.9 Amyloidosis, unspecified; I50.33 Acute on chronic diastolic (congestive) heart failure; G25.81 Restless legs syndrome; D64.9 Anemia, unspecified; K21.9 Gastro-esophageal reflux disease without esophagitis; I42.9 Cardiomyopathy, unspecified; M54.9 Dorsalgia, unspecified; H40.9 Unspecified glaucoma
CPT/HCPCS: 36415; 71046-TC-FY; 80048; 80053; 81003; 82272; 82550; 82553; 82607; 82746; 83540; 83550; 83735; 83880; 84100; 84443; 84484; 85025; 85027; 85045; 85610; 85730; 86850; 86900; 86901; 87086; 87804; 93005; 93010; 97116-GP; 97161-GP; 99285-25; C9803; U0003

== ENCOUNTER 2021-01-16 13:58 | Emergency (ER) | payer OTHER, MEDICARE ==
[2021-01-16 14:26] VITALS: BMI 22.4
[2021-01-16] MEDS ORDERED: ACETAMINOPHEN 325 MG TABLET (FP) PO ONE (17:12)
[2021-01-16] MEDS ORDERED: ACETAMINOPHEN 325 MG TABLET (FP) ONE (17:16)
[2021-01-16 17:38] VITALS: BP 145/97; PULSE 78; TEMP 97.7
== END 2021-01-16 17:50 | disposition home or self-care (01) ==
LOC: JER 13:58
DX: M54.41 Lumbago with sciatica, right side (principal); M54.42 Lumbago with sciatica, left side
CPT/HCPCS: 99283-25

== ENCOUNTER 2021-02-03 16:30 | Inpatient (IN) | payer OTHER, MEDICARE ==
[2021-02-03] MEDS ORDERED: SODIUM CHLORIDE 0.9% 500 ML INFUS.BAG IV ONE (16:47)
[2021-02-03 17:25] LABS: EOS % 1.4 % (0-4.5); HEMATOCRIT 35.6 % (32.4-45.2); HEMOGLOBIN 11.6 GM/dl (10.7-15.3); LYMPH % 31.9 % (8-40); MCHC 32.5 g/dl (32.0-36.0); MEAN CELL VOLUME 86.1 fl (80-96); MEAN PLT VOLUME 7.5 fl (7.5-11.1); MONO % 8.1 % (3.8-10.2); NEUT % 57.6 % (42.8-82.8); PLATELET COUNT 235 K/MM3 (134-434); RBC 4.14 M/mm3 (3.60-5.2); RDW 13.4 % (11.6-15.6); WHITE BLOOD COUNT 7.7 K/mm3 (4.0-10.8)
[2021-02-03 17:35] LABS: ALBUMIN 4.2 g/dl (3.4-5.0); ALK PHOS 74 U/L (45-117); ANION GAP 7 MMOL/L (8-16); BILIRUBIN,TOTAL 0.4 mg/dl (0.2-1); CALCIUM 9.3 mg/dl (8.5-10); CHLORIDE 105 mmol/L (98-107); CO2 28 mmol/L (21-32); CREATININE 1.3 mg/dl (0.55-1.3); GLUCOSE,RANDOM 95 mg/dl (74-106); MAGNESIUM 2.2 mg/dL (1.8-2.4); SGOT/AST 35 U/L (15-37); SGPT/ALT 29 U/L (13-61); SODIUM 140 mmol/L (136-145); TOT PROT 7.8 g/dl (6.4-8.2)
[2021-02-03] MEDS ORDERED: PRAMIPEXOLE DIHYDROCHLORIDE 1 MG TABLET PO SCH (22:00)
[2021-02-03] MEDS ORDERED: LATANOPROST 0.005% OPHTH SOLN 2.5ML BOTTLE OD SCH (23:45)
[2021-02-04 00:23] VITALS: BMI 23.1
[2021-02-04] MEDS ORDERED: GABAPENTIN 300 MG CAPSULE PO ONE (01:15)
[2021-02-04] MEDS: hydrALAZINE HCL 50 MG TABLET (FP) PO SCH ×2 (01:32→09:46)
[2021-02-04] MEDS: NEBIVOLOL 10 MG TABLET (FP) PO SCH ×2 (01:32→09:46)
[2021-02-04] MEDS ORDERED: PRAMIPEXOLE DIHYDROCHLORIDE 0.25 MG TABLET PO SCH (07:00)
[2021-02-04 07:59] LABS: BASO % 0.5 % (0-2.0); EOS % 1.8 % (0-4.5); HEMOGLOBIN 10.1 GM/dl (10.7-15.3); LYMPH % 38.8 % (8-40); MCHC 32.5 g/dl (32.0-36.0); MEAN CELL VOLUME 86.2 fl (80-96); MEAN PLT VOLUME 7.4 fl (7.5-11.1); MONO % 9.3 % (3.8-10.2); NEUT % 49.6 % (42.8-82.8); PLATELET COUNT 215 K/MM3 (134-434); RBC 3.59 M/mm3 (3.60-5.2); RDW 13.3 % (11.6-15.6); WHITE BLOOD COUNT 5.3 K/mm3 (4.0-10.8)
[2021-02-04 08:26] LABS: ALBUMIN 3.3 g/dl (3.4-5.0); BILIRUBIN,TOTAL 0.5 mg/dl (0.2-1); CALCIUM 8.7 mg/dl (8.5-10); TOT PROT 6.3 g/dl (6.4-8.2)
[2021-02-04] MEDS ORDERED: LOSARTAN POTASSIUM 50 MG TABLET PO SCH (10:00)
[2021-02-04] MEDS ORDERED: PATIENT'S OWN MEDICATION (NON-FORMULARY) (Olmesartan Medoxomil 40 MG Tablet) PO SCH (10:00)
[2021-02-04] MEDS ORDERED: LATANOPROST 0.005% OPHTH SOLN 2.5ML BOTTLE OD SCH (10:00)
[2021-02-04] MEDS ORDERED: FUROSEMIDE 40 MG TABLET (FP) PO SCH (10:00)
[2021-02-04] MEDS ORDERED: GABAPENTIN 300 MG CAPSULE PO SCH ×2 (10:00→22:00)
[2021-02-04] MEDS ORDERED: FAMOTIDINE 10 MG TABLET PO SCH (10:00)
[2021-02-04] MEDS ORDERED: HEPARIN NA (PORCINE) 5,000 UNITS/ML 1ML VIAL SQ SCH (10:00)
[2021-02-04] MEDS ORDERED: ASPIRIN COATED 81 MG TABLET.EC PO SCH (10:00)
[2021-02-04] MEDS ORDERED: FAMOTIDINE 20 MG TABLET PO SCH ×3 (10:00)
[2021-02-04 14:18] VITALS: BP 101/57; PULSE 72; TEMP 98.9
[2021-02-04] MEDS ORDERED: MELATONIN 5 MG TABLETS PO SCH (22:00)
[2021-02-04] MEDS ORDERED: PATIENT'S OWN MEDICATION (NON-FORMULARY) (Melatonin [Melatonin] 10 MG Tablet) PO SCH (22:00)
== END 2021-02-04 17:37 | disposition home or self-care (01) | DRG 312 ==
LOC: FER 16:30 → FM/S 20:12
PROVIDERS: ADMIT Hospitalist; ATTEND Nurse Practitioner Acute Care
DX: R55 Syncope and collapse (principal); I50.32 Chronic diastolic (congestive) heart failure; I34.0 Nonrheumatic mitral (valve) insufficiency; I36.1 Nonrheumatic tricuspid (valve) insufficiency; D64.9 Anemia, unspecified; K21.9 Gastro-esophageal reflux disease without esophagitis; M54.9 Dorsalgia, unspecified; I11.0 Hypertensive heart disease with heart failure; M54.32 Sciatica, left side; M54.31 Sciatica, right side; Z20.822 Contact with and (suspected) exposure to COVID-19
CPT/HCPCS: 36415; 70450-TC; 71045-TC-FY; 80053; 81003; 83735; 83880; 84484; 85025; 87086; 93005; 93306-TC; 93880-TC; 99285-25; C9803; J1644; U0003; U0005

== ENCOUNTER 2021-06-05 13:10 | Emergency (ER) | payer OTHER, MEDICARE ==
[2021-06-05 13:16] VITALS: BP 165/85; PULSE 86; TEMP 98.9; BMI 23.3
[2021-06-05 14:50] LABS: BASO % 1.4 % (0-2.0); EOS % 1.3 % (0-4.5); HEMOGLOBIN 10.8 GM/dL (10.7-15.3); MCH 28.2 pg (25.7-33.7); MCHC 33.9 g/dl (32.0-36.0); MEAN CELL VOLUME 83.3 fl (80-96); MEAN PLT VOLUME 7.8 fl (7.5-11.1); MONO % 9.5 % (3.8-10.2); NEUT % 45.8 % (42.8-82.8); PLATELET COUNT 203 10^3/uL (134-434); RBC 3.84 M/mm3 (3.60-5.2); RDW 13.7 % (11.6-15.6); WHITE BLOOD COUNT 4.9 K/mm3 (4.0-10.0)
[2021-06-05 15:16] LABS: CHLORIDE 104 mmol/L (98-107); SODIUM 140 mmol/L (136-145)
[2021-06-05 15:17] LABS: CALCIUM 8.9 mg/dL (8.5-10.1)
[2021-06-05 15:18] LABS: ALBUMIN 3.6 g/dl (3.4-5.0); ANION GAP 9 MMOL/L (8-16); BLOOD UREA NITROGEN 26.9 mg/dL (7-18); CO2 27 mmol/L (21-32); GLUCOSE,RANDOM 91 mg/dL (74-106)
[2021-06-05 15:21] LABS: CREATININE 1.3 mg/dL (0.55-1.3); SGPT/ALT 34 U/L (13-61)
[2021-06-05 15:22] LABS: SGOT/AST 47 U/L (15-37)
[2021-06-05 15:23] LABS: BILIRUBIN,TOTAL 0.2 mg/dL (0.2-1); TOT PROT 7.3 g/dl (6.4-8.2)
[2021-06-05 15:24] LABS: ALK PHOS 69 U/L (45-117)
== END 2021-06-05 16:08 | disposition home or self-care (01) ==
LOC: JER 13:10
PROC: 3E023NZ Introduction of Analgesics, Hypnotics, Sedatives into Muscle, Percutaneous Approach (ICD-10-PCS; principal; 2021-06-05)
DX: B34.9 Viral infection, unspecified (principal)
CPT/HCPCS: 36415; 71046-TC-FY; 80053; 82550; 82553; 84484; 85025; 87040; 93005; 93010; 99283-25; C9803; U0003; U0005

== ENCOUNTER 2021-10-14 21:20 | Observation (INO) | payer OTHER, MEDICARE ==
[2021-10-14 21:39] VITALS: BMI 23.6
[2021-10-14] MEDS ORDERED: ACETAMINOPHEN 1000 MG/100 ML VIAL IVPB ONE (22:18)
[2021-10-14] MEDS ORDERED: SODIUM CHLORIDE 0.9% 1000 ML INFUS.BAG IV ONE (22:18)
[2021-10-14 22:23] LABS: BASO % 0.7 % (0-2.0); EOS % 1.9 % (0-4.5); HEMATOCRIT 29.7 % (32.4-45.2); HEMOGLOBIN 9.8 GM/dL (10.7-15.3); LYMPH % 27.9 % (8-40); MCH 26.9 pg (25.7-33.7); MCHC 32.9 g/dl (32.0-36.0); MEAN CELL VOLUME 81.7 fl (80-96); MEAN PLT VOLUME 6.6 fl (7.5-11.1); MONO % 9.9 % (3.8-10.2); NEUT % 59.6 % (42.8-82.8); PLATELET COUNT 255 10^3/uL (134-434); RBC 3.63 M/mm3 (3.60-5.2); RDW 14.5 % (11.6-15.6); WHITE BLOOD COUNT 4.6 K/mm3 (4.0-10.0)
[2021-10-14] MEDS ORDERED: ACETAMINOPHEN INJECTION 100 ML IVPB ONE (22:26)
[2021-10-14 22:41] LABS: CHLORIDE 103 mmol/L (98-107); SODIUM 138 mmol/L (136-145)
[2021-10-14 22:44] LABS: ANION GAP 6 MMOL/L (8-16); BLOOD UREA NITROGEN 24.9 mg/dL (7-18); CALCIUM 9.1 mg/dL (8.5-10.1); CO2 29 mmol/L (21-32); GLUCOSE,RANDOM 127 mg/dL (74-106)
[2021-10-14 22:47] LABS: CREATININE 1.4 mg/dL (0.55-1.3); SGOT/AST 23 U/L (15-37)
[2021-10-14 22:49] LABS: BILIRUBIN,TOTAL 0.1 mg/dL (0.2-1)
[2021-10-14 22:50] LABS: ALK PHOS 110 U/L (45-117)
[2021-10-14] MEDS ORDERED: LIDOCAINE 5% TOPICAL PATCH TP ONE (23:09)
[2021-10-14 23:11] LABS: SGPT/ALT 20 U/L (13-61)
[2021-10-15] MEDS ORDERED: HEPARIN NA (PORCINE) 5,000 UNITS/ML 1ML VIAL SQ ONE ×2 (00:50)
[2021-10-15] MEDS: LIDOCAINE PATCH REMOVAL MC SCH ×2 (02:25→23:12)
[2021-10-15] MEDS ORDERED: hydrALAZINE HCL 25 MG TABLET (FP) ONE ×2 (02:26→14:01)
[2021-10-15] MEDS ORDERED: HYDROmorphone HCL 2 MG TABLET ONE (02:27)
[2021-10-15] MEDS ORDERED: LIDOCAINE 5% TOPICAL PATCH ONE (02:27)
[2021-10-15] MEDS ORDERED: HEPARIN NA (PORCINE) 5,000 UNITS/ML 1ML VIAL ONE (02:27)
[2021-10-15] MEDS: hydrALAZINE HCL 50 MG TABLET (FP) PO SCH ×3 (02:38→23:12)
[2021-10-15] MEDS: HYDROmorphone HCL 2 MG TABLET PO PRN (02:38)
[2021-10-15] MEDS: NEBIVOLOL 10 MG TABLET (FP) PO SCH ×3 (02:47→23:30)
[2021-10-15] MEDS ORDERED: SIMETHICONE 80 MG TAB.CHEW (FP) PO ONE (06:06)
[2021-10-15] MEDS ORDERED: DOCUSATE SODIUM 100 MG CAPSULE (FP) PO ONE (06:31)
[2021-10-15] MEDS: DOCUSATE SODIUM 100 MG CAPSULE (FP) PO SCH ×3 (06:47→23:12)
[2021-10-15] MEDS ORDERED: ACETAMINOPHEN 325 MG TABLET (FP) PO PRN (08:00)
[2021-10-15 08:09] LABS: HEMATOCRIT 29.1 % (32.4-45.2); HEMOGLOBIN 9.7 GM/dL (10.7-15.3); MCH 26.9 pg (25.7-33.7); MCHC 33.2 g/dl (32.0-36.0); MEAN CELL VOLUME 80.9 fl (80-96); MEAN PLT VOLUME 6.6 fl (7.5-11.1); PLATELET COUNT 251 10^3/uL (134-434); RBC 3.59 M/mm3 (3.60-5.2); RDW 14.6 % (11.6-15.6); WHITE BLOOD COUNT 5.2 K/mm3 (4.0-10.0)
[2021-10-15 08:23] LABS: CHLORIDE 106 mmol/L (98-107); SODIUM 140 mmol/L (136-145)
[2021-10-15 08:31] LABS: PHOSPHOROUS 3.8 mg/dL (2.5-4.9)
[2021-10-15 08:32] LABS: ANION GAP 5 MMOL/L (8-16); BLOOD UREA NITROGEN 20.2 mg/dL (7-18); CO2 28 mmol/L (21-32); GLUCOSE,RANDOM 113 mg/dL (74-106); MAGNESIUM 2.2 mg/dL (1.8-2.4)
[2021-10-15 08:33] LABS: BILIRUBIN,TOTAL 0.2 mg/dL (0.2-1); TOT PROT 6.9 g/dl (6.4-8.2)
[2021-10-15 08:34] LABS: ALK PHOS 113 U/L (45-117)
[2021-10-15 08:35] LABS: CREATININE 1.1 mg/dL (0.55-1.3); SGPT/ALT 18 U/L (13-61)
[2021-10-15 08:36] LABS: SGOT/AST 18 U/L (15-37)
[2021-10-15] MEDS ORDERED: LOSARTAN POTASSIUM 50 MG TABLET PO SCH (10:00)
[2021-10-15] MEDS ORDERED: FUROSEMIDE 40 MG TABLET (FP) PO SCH (10:00)
[2021-10-15] MEDS ORDERED: ASPIRIN COATED 81 MG TABLET.EC PO SCH (10:00)
[2021-10-15] MEDS ORDERED: MAGNESIUM OXIDE 400 MG TABLET (FP) PO SCH (10:00)
[2021-10-15] MEDS ORDERED: FAMOTIDINE 20 MG TABLET PO SCH (10:00)
[2021-10-15] MEDS ORDERED: DOCUSATE SODIUM 100 MG CAPSULE (FP) PO SCH (10:00)
[2021-10-15] MEDS ORDERED: FERROUS SO4 325 MG TABLET (FP) PO SCH (10:00)
[2021-10-15] MEDS ORDERED: SERTRALINE HCL 25 MG TABLET (FP) PO SCH (10:00)
[2021-10-15] MEDS ORDERED: ACETAMINOPHEN 1000 MG/100 ML VIAL IVPB PRN (10:14)
[2021-10-15] MEDS ORDERED: ASPIRIN COATED 81 MG TABLET.EC ONE (14:01)
[2021-10-15] MEDS ORDERED: FUROSEMIDE 40 MG TABLET (FP) ONE (14:01)
[2021-10-15] MEDS ORDERED: FAMOTIDINE 20 MG TABLET ONE (14:01)
[2021-10-15] MEDS ORDERED: PT OWN MED DRAWER 7, Y5N ONE ×3 (14:02→23:02)
[2021-10-15] MEDS ORDERED: LOSARTAN POTASSIUM 50 MG TABLET ONE (14:02)
[2021-10-15] MEDS ORDERED: SERTRALINE HCL 50 MG TABLET (FP) ONE (14:02)
[2021-10-15] MEDS ORDERED: MAGNESIUM OXIDE 400 MG TABLET (FP) ONE (14:02)
[2021-10-15] MEDS: HEPARIN NA (PORCINE) 5,000 UNITS/ML 1ML VIAL SQ SCH ×2 (14:30→23:11)
[2021-10-15] MEDS ORDERED: BISACODYL 10 MG SUPP.RECT PR PRN (17:18)
[2021-10-15] MEDS ORDERED: ACETAMINOPHEN INJECTION 100 ML IVPB ONE (20:59)
[2021-10-15] MEDS ORDERED: MELATONIN 5 MG TABLETS PO SCH (22:00)
[2021-10-15] MEDS ORDERED: POLYETHYLENE GLYCOL (HEALTHYLAX) 3350 17 GM PACKET PO SCH (22:00)
[2021-10-15] MEDS: SENNOSIDES 8.6MG TABLET (FP) PO SCH (23:13)
[2021-10-16] MEDS: HYDROmorphone HCL 2 MG TABLET PO PRN (01:17)
[2021-10-16] MEDS ORDERED: BISACODYL 10 MG SUPP.RECT PR PRN (03:35)
[2021-10-16] MEDS ORDERED: HYDROmorphone HCL 2 MG TABLET PO PRN (03:35)
[2021-10-16] MEDS ORDERED: ACETAMINOPHEN 1000 MG/100 ML VIAL IVPB PRN (03:35)
[2021-10-16] MEDS: HEPARIN NA (PORCINE) 5,000 UNITS/ML 1ML VIAL SQ SCH ×2 (05:53→15:29)
[2021-10-16] MEDS ORDERED: amLODIPine BESYLATE 5 MG TABLET (FP) PO ONE (06:04)
[2021-10-16] MEDS: DOCUSATE SODIUM 100 MG CAPSULE (FP) PO SCH ×3 (06:12→22:05)
[2021-10-16] MEDS ORDERED: FUROSEMIDE 40 MG TABLET (FP) PO SCH (10:00)
[2021-10-16] MEDS ORDERED: SERTRALINE HCL 25 MG TABLET (FP) PO SCH (10:00)
[2021-10-16] MEDS ORDERED: NEBIVOLOL 10 MG TABLET (FP) PO SCH (10:00)
[2021-10-16] MEDS ORDERED: MAGNESIUM OXIDE 400 MG TABLET (FP) PO SCH (10:00)
[2021-10-16] MEDS ORDERED: FAMOTIDINE 20 MG TABLET PO SCH (10:00)
[2021-10-16] MEDS ORDERED: ASPIRIN COATED 81 MG TABLET.EC PO SCH (10:00)
[2021-10-16] MEDS ORDERED: hydrALAZINE HCL 50 MG TABLET (FP) PO SCH (10:00)
[2021-10-16] MEDS ORDERED: LOSARTAN POTASSIUM 50 MG TABLET PO SCH (10:00)
[2021-10-16] MEDS ORDERED: PT OWN MED DRAWER 7, Y5N ONE ×3 (11:57→15:27)
[2021-10-16] MEDS: POLYETHYLENE GLYCOL (HEALTHYLAX) 3350 17 GM PACKET PO SCH ×2 (12:07→22:05)
[2021-10-16] MEDS ORDERED: oxyCODONE HCL 5 MG TABLET PO PRN (15:25)
[2021-10-16] MEDS ORDERED: morphine SULFATE 4 MG/ML VIAL IVPUSH PRN (15:26)
[2021-10-16 20:09] VITALS: BP 134/72; PULSE 88; TEMP 98.4
[2021-10-16] MEDS: DEXAMETHASONE SOD PHOSPHATE 10 MG/1 ML VIAL IVPUSH SCH ×2 (21:06→22:05)
[2021-10-16] MEDS ORDERED: MUPIROCIN 2% TOPICAL OINTMENT FOR DECOLONIZATION NS SCH ×2 (22:00→22:30)
[2021-10-16] MEDS ORDERED: CHLORHEXIDINE GLUCONATE 4% CLEANSER FOR DECOLONIZATION TP SCH ×2 (22:00→22:30)
[2021-10-16] MEDS ORDERED: LIDOCAINE PATCH REMOVAL MC SCH (22:00)
[2021-10-16] MEDS ORDERED: MELATONIN 5 MG TABLETS PO SCH (22:00)
[2021-10-16] MEDS: SENNOSIDES 8.6MG TABLET (FP) PO SCH (22:04)
== END 2021-10-16 23:00 | disposition short-term general hospital (02) ==
LOC: JER 21:20 → JERBED 23:39 → UNDOADMOB 23:39 → J7W 10-15 22:40 → UNDODISOB 10-16 22:29
PROVIDERS: ADMIT Internal Medicine; ATTEND Internal Medicine
PROC: 3E033NZ Introduction of Analgesics, Hypnotics, Sedatives into Peripheral Vein, Percutaneous Approach (ICD-10-PCS; principal; 2021-10-14)
PROC: 3E033GC Introduction of Other Therapeutic Substance into Peripheral Vein, Percutaneous Approach (ICD-10-PCS; 2021-10-14)
PROC: 3E023GC Introduction of Other Therapeutic Substance into Muscle, Percutaneous Approach (ICD-10-PCS; 2021-10-14)
PROC: 3E0337Z Introduction of Electrolytic and Water Balance Substance into Peripheral Vein, Percutaneous Approach (ICD-10-PCS; 2021-10-14)
DX: M54.42 Lumbago with sciatica, left side (principal); I11.0 Hypertensive heart disease with heart failure; I10 Essential (primary) hypertension; G89.29 Other chronic pain; M54.9 Dorsalgia, unspecified; C91.10 Chronic lymphocytic leukemia of B-cell type not having achieved remission; D64.9 Anemia, unspecified; M06.9 Rheumatoid arthritis, unspecified; K21.9 Gastro-esophageal reflux disease without esophagitis; Z91.09 Other allergy status, other than to drugs and biological substances
CPT/HCPCS: 36415; 71046-TC-FY; 72100-TC-FY; 72158-TC; 74018-TC-FY; 74176-TC; 76775-TC; 80053; 80061; 82272; 82550; 82553; 82728; 82962; 83036; 83540; 83550; 83735; 84100; 84439; 84443; 84484; 85025; 85027; 85651; 87040; 93005; 93010; 93306-TC; 93880-TC; 96372; 96374; 96375; 96376; 97162-GP; 99285-25; A9579; C1887; C9803; G0378; J0131; J1100; J1644; U0003; U0005

== ENCOUNTER 2024-06-05 04:31 | Inpatient (IN) | payer OTHER, MEDICARE ==
[2024-06-01 15:48] VITALS: BMI 27.4
[2024-06-05] MEDS ORDERED: HEPARIN NA (PORCINE) 5,000 UNITS/ML 1ML VIAL ONE (07:09)
[2024-06-05] MEDS ORDERED: cefOXitin SODIUM 2 GM VIAL (RESTRICTED TO ID) IVPB ONE (07:09)
[2024-06-05] MEDS ORDERED: BUPIVACAINE HCL/PF 0.25% (2.5MG/ML) 10 ML VIAL ONE (07:09)
[2024-06-05] MEDS ORDERED: ONDANSETRON 4 MG/2 ML VIAL ONE (07:46)
[2024-06-05] MEDS ORDERED: LIDOCAINE HCL/PF 2% SDV 5ML VIAL ONE (07:46)
[2024-06-05] MEDS ORDERED: DEXAMETHASONE SOD PHOSPHATE 4 MG/1 ML VIAL ONE (07:46)
[2024-06-05] MEDS ORDERED: MIDAZOLAM HCL 2 MG/2 ML SINGLE DOSE VIAL ONE (07:47)
[2024-06-05] MEDS ORDERED: PROPOFOL 60 ML ONE (07:47)
[2024-06-05] MEDS ORDERED: SUCCINYLCHOLINE CHLORIDE 200 MG/10 ML SYRINGE ONE (07:49)
[2024-06-05] MEDS ORDERED: ROCURONIUM BROMIDE 50 MG/5 ML SYRINGE ONE ×2 (07:49→10:54)
[2024-06-05] MEDS ORDERED: oxyCODONE HCL 5 MG TABLET PO PRN (08:21)
[2024-06-05] MEDS ORDERED: ONDANSETRON 4 MG/2 ML VIAL IVPUSH PRN (08:21)
[2024-06-05 08:25] LABS: INR 1.06 (0.83-1.09)
[2024-06-05 08:28] LABS: ACTIVATED PTT 30.3 SECONDS (25.2-36.5)
[2024-06-05] MEDS: ceFAZolin SODIUM 1 GM VIAL IVPB ONE (08:45)
[2024-06-05] MEDS: BUPIVACAINE HCL/PF 0.25% (2.5MG/ML) 10 ML VIAL IJ ONE ×2 (09:30→13:14)
[2024-06-05] MEDS ORDERED: SUGAMMADEX SODIUM 200 MG/2 ML VIAL ONE (13:20)
[2024-06-05] MEDS: LOSARTAN POTASSIUM 50 MG TABLET PO ONE (15:55)
[2024-06-05] MEDS ORDERED: ACETAMINOPHEN 325 MG TABLET (FP) ONE (18:27)
[2024-06-05] MEDS: LACTATED RINGERS SOLUTION 1,000 ML IV SCH (19:00)
[2024-06-05] MEDS: LABETALOL HCL 20 MG/4 ML VIAL IVPUSH ONE (19:41)
[2024-06-05] MEDS: ACETAMINOPHEN 325 MG TABLET (FP) PO SCH ×2 (19:41→22:36)
[2024-06-05] MEDS: DOXAZOSIN MESYLATE 4 MG TABLET PO SCH (23:12)
[2024-06-05] MEDS: DIVALPROEX NA *ER* EXTEND REL 500 MG TABLET.SA (FP) PO SCH (23:12)
[2024-06-05] MEDS: NIFEdipine E.R 60 MG TABLET PO SCH (23:12)
[2024-06-05] MEDS: PRAMIPEXOLE DIHYDROCHLORIDE 0.5 MG TABLET PO SCH (23:12)
[2024-06-06] MEDS: HYDROCHLOROTHIAZIDE 25 MG TABLET (FP) PO SCH (10:08)
[2024-06-06] MEDS: ALBUTEROL SO4 HFA INHALER IH PRN (10:08)
[2024-06-06] MEDS: LOSARTAN POTASSIUM 50 MG TABLET PO SCH (10:09)
[2024-06-06] MEDS: SODIUM CHLORIDE 1,000 ML IV STA (10:09)
[2024-06-06] MEDS: FAMOTIDINE 20 MG TABLET PO SCH (10:11)
[2024-06-06 10:47] LABS: BASO % 0.2 % (0-2.0); EOS % 1.1 % (0-4.5); HEMATOCRIT 27.5 % (32.4-45.2); HEMOGLOBIN 9.3 GM/dL (10.7-15.3); LYMPH % 30.7 % (8-40); MCH 30.7 pg (25.7-33.7); MCHC 33.7 g/dl (32.0-36.0); MEAN PLT VOLUME 7.2 fl (7.5-11.1); MONO % 11.2 % (3.8-10.2); NEUT % 56.8 % (42.8-82.8); PLATELET COUNT 146 10^3/uL (134-434); RBC 3.02 M/mm3 (3.60-5.2); RDW 14.3 % (11.6-15.6); WHITE BLOOD COUNT 6.8 K/mm3 (4.0-10.0)
[2024-06-06 11:09] LABS: POTASSIUM 3.9 mmol/L (3.5-5.1)
[2024-06-06 11:12] LABS: BLOOD UREA NITROGEN 27.6 mg/dL (7-18); CALCIUM 8.3 mg/dL (8.5-10.1)
[2024-06-06 11:21] LABS: CREATININE 1.1 mg/dL (0.55-1.3)
[2024-06-06] MEDS: ESCITALOPRAM OXALATE 20 MG TABLET PO SCH (14:11)
[2024-06-06] MEDS: APIXABAN 2.5 MG TABLET PO SCH (14:11)
[2024-06-06] MEDS: ASPIRIN COATED 81 MG TABLET.EC PO SCH (14:11)
[2024-06-06] MEDS: SODIUM CHLORIDE 1,000 ML IV SCH (14:13)
[2024-06-06] MEDS: METOPROLOL TARTRATE 50 MG TABLET (FP) PO SCH (22:02)
[2024-06-06 22:45] VITALS: RESP 18
[2024-06-06] MEDS: LATANOPROST 0.005% OPHTH SOLN 2.5ML BOTTLE OD SCH (23:11)
[2024-06-07] MEDS: BRIMONIDINE TARTRATE 0.2% OPHTHALMIC 5 ML BOTTLE OU SCH (09:58)
[2024-06-07 10:06] LABS: BASO % 0.3 % (0-2.0); EOS % 1.7 % (0-4.5); HEMATOCRIT 29.9 % (32.4-45.2); LYMPH % 24.4 % (8-40); MCH 30.3 pg (25.7-33.7); MCHC 33.4 g/dl (32.0-36.0); MEAN CELL VOLUME 90.7 fl (80-96); MEAN PLT VOLUME 7.6 fl (7.5-11.1); MONO % 10.8 % (3.8-10.2); NEUT % 62.8 % (42.8-82.8); PLATELET COUNT 138 10^3/uL (134-434); RBC 3.29 M/mm3 (3.60-5.2); RDW 14.5 % (11.6-15.6)
[2024-06-07] MEDS: LOSARTAN POTASSIUM 50 MG TABLET PO SCH (10:07)
[2024-06-07 10:30] LABS: POTASSIUM 4.1 mmol/L (3.5-5.1)
[2024-06-07 10:33] LABS: CALCIUM 8.6 mg/dL (8.5-10.1)
[2024-06-07 10:34] LABS: BLOOD UREA NITROGEN 15.6 mg/dL (7-18)
[2024-06-07 10:37] LABS: CREATININE 0.8 mg/dL (0.55-1.3)
[2024-06-07] MEDS: FUROSEMIDE 40 MG/4 ML INJECTABLE VIAL IVPB ONE (17:14)
[2024-06-08 10:14] LABS: BLOOD UREA NITROGEN 13.2 mg/dL (7-18); CALCIUM 8.6 mg/dL (8.5-10.1)
[2024-06-08 10:18] LABS: CREATININE 0.9 mg/dL (0.55-1.3)
[2024-06-08] MEDS ORDERED: FUROSEMIDE 40 MG/4 ML INJECTABLE VIAL IVPB ONE (16:20)
[2024-06-09 09:19] LABS: BASO % 0.4 % (0-2.0); EOS % 4.7 % (0-4.5); HEMATOCRIT 31.4 % (32.4-45.2); HEMOGLOBIN 10.5 GM/dL (10.7-15.3); LYMPH % 30.9 % (8-40); MCH 30.3 pg (25.7-33.7); MCHC 33.5 g/dl (32.0-36.0); MEAN CELL VOLUME 90.6 fl (80-96); MEAN PLT VOLUME 7.5 fl (7.5-11.1); MONO % 11.8 % (3.8-10.2); NEUT % 52.2 % (42.8-82.8); PLATELET COUNT 153 10^3/uL (134-434); RBC 3.46 M/mm3 (3.60-5.2); RDW 13.9 % (11.6-15.6); WHITE BLOOD COUNT 5.8 K/mm3 (4.0-10.0)
[2024-06-09 09:49] LABS: POTASSIUM 3.9 mmol/L (3.5-5.1)
[2024-06-09 10:02] LABS: ALBUMIN 2.8 g/dl (3.4-5.0); BLOOD UREA NITROGEN 13.4 mg/dL (7-18); CALCIUM 8.7 mg/dL (8.5-10.1)
[2024-06-09 10:06] LABS: BILIRUBIN,TOTAL 0.4 mg/dL (0.2-1); CREATININE 0.8 mg/dL (0.55-1.3); TOT PROT 6.2 g/dl (6.4-8.2)
[2024-06-09 12:30] VITALS: BP 145/88; PULSE 74; TEMP 98.4
[2024-06-10] MEDS ORDERED: DIVALPROEX NA *ER* EXTEND REL 500 MG TABLET.SA (FP) PO SCH (22:00)
== END 2024-06-09 12:40 | DRG 354 ==
LOC: JASUSAT 04:31 → JASU-SURG 04:31 → SUATTDRO 04:31 → UNDOADMIN 06:00 → J2C 06:00 → J8W 18:58 → JASUSAT 18:59 → J8W 06-06 10:22
PROVIDERS: ADMIT Internal Medicine; ATTEND Nurse Practitioner Acute Care
PROC: 8E0W4CZ Robotic Assisted Procedure of Trunk Region, Percutaneous Endoscopic Approach (ICD-10-PCS; 2024-06-05)
PROC: 0WUF4JZ Supplement Abdominal Wall with Synthetic Substitute, Percutaneous Endoscopic Approach (ICD-10-PCS; principal; 2024-06-05 08:00)
DX: K45.8 Other specified abdominal hernia without obstruction or gangrene (principal); I13.0 Hypertensive heart and chronic kidney disease with heart failure and stage 1 through stage 4 chronic kidney disease, or unspecified chronic kidney disease; I50.32 Chronic diastolic (congestive) heart failure; K21.9 Gastro-esophageal reflux disease without esophagitis; I25.10 Atherosclerotic heart disease of native coronary artery without angina pectoris; E78.5 Hyperlipidemia, unspecified; M06.9 Rheumatoid arthritis, unspecified; M54.50 Low back pain, unspecified; N18.9 Chronic kidney disease, unspecified; I48.0 Paroxysmal atrial fibrillation; I95.81 Postprocedural hypotension; Z95.0 Presence of cardiac pacemaker
CPT/HCPCS: 36415; 71045-TC-FY; 80048; 80053; 83735; 85025; 85610; 85730; 86850; 86900; 86901; 87635; 93306-TC; 94010; 94760; 97116-GP; 97161-GP; 99283-25; C1781; J1644

== ENCOUNTER 2025-01-19 11:35 | Inpatient (IN) | payer OTHER, MEDICARE ==
[2025-01-19 13:34] LABS: HEMATOCRIT 33.4 % (34.1-44.9); HEMOGLOBIN 10.1 g/dL (11.2-15.7); MCHC 30.2 g/dl (32.2-35.5); MEAN CELL VOLUME 92.5 fl (79.4-94.8); MEAN PLT VOLUME 9.4 fl (9.4-12.3); PLATELET COUNT 233 x10^3/uL (182-369); RDW 13.6 % (12.5-17.0)
[2025-01-19 13:37] LABS: VENOUS BASE EXCESS 2.7 mmol/L (-2-2); VENOUS O2 SATURATION 62.6 % (70-80); VENOUS PCO2 57.9 mmHg (38-52); VENOUS PH 7.33 (7.310-7.410)
[2025-01-19 13:42] LABS: INR 1.28 (0.83-1.09); PROTHROMBIN TIME (PATIENT) 14.1 SEC (9.7-13.0)
[2025-01-19 13:44] LABS: ACTIVATED PTT 34.7 SECONDS (25.2-36.5)
[2025-01-19 14:19] LABS: POTASSIUM 4.6 mmol/L (3.5-5.1)
[2025-01-19 14:20] LABS: BLOOD UREA NITROGEN 43.4 mg/dL (7-18); CALCIUM 8.9 mg/dL (8.5-10.1)
[2025-01-19 14:21] LABS: ALBUMIN 3.4 g/dl (3.4-5.0); MAGNESIUM 2.2 mg/dL (1.8-2.4)
[2025-01-19 14:24] LABS: CREATININE 1.3 mg/dL (0.55-1.3)
[2025-01-19 14:25] LABS: PHOSPHOROUS 4.6 mg/dL (2.5-4.9)
[2025-01-19 14:26] LABS: BILIRUBIN,TOTAL 0.3 mg/dL (0.2-1)
[2025-01-19 14:27] LABS: TOT PROT 7.5 g/dl (6.4-8.2)
[2025-01-19] MEDS: SODIUM CHLORIDE 0.9% 500 ML INFUS.BAG IV ONE (15:20)
[2025-01-19] MEDS ORDERED: ACETAMINOPHEN INJECTION 100 ML ONE (15:39)
[2025-01-19] MEDS: ACETAMINOPHEN 1000 MG/100 ML BAG IVPB ONE (15:45)
[2025-01-19 17:09] LABS: URINE APPEARANCE CLEAR; URINE BILIRUBIN NEGATIVE (NEGATIVE); URINE COLOR YELLOW; URINE GLUCOSE (UA) NEGATIVE (NEGATIVE); URINE KETONE NEGATIVE (NEGATIVE); URINE LEUK ESTERASE NEGATIVE (NEGATIVE); URINE NITRITE NEGATIVE (NEGATIVE); URINE PROTEIN NEGATIVE (NEGATIVE); URINE UROBILINOGEN 0.2 mg/dL (0.2-1.0)
[2025-01-19] MEDS ORDERED: clonazePAM 0.5 MG ODT TABLETS SL PRN (19:36)
[2025-01-19] MEDS ORDERED: ALBUTEROL SO4 HFA INHALER IH PRN (19:36)
[2025-01-19 20:26] VITALS: BMI 29.2
[2025-01-19] MEDS: PRAMIPEXOLE DIHYDROCHLORIDE 0.5 MG TABLET PO SCH (22:10)
[2025-01-19] MEDS: clonazePAM 0.5 MG TABLET PO PRN (22:11)
[2025-01-19] MEDS: LATANOPROST 0.005% OPHTH SOLN 2.5ML BOTTLE OU SCH (22:11)
[2025-01-19] MEDS: APIXABAN 5 MG TABLET PO SCH (22:11)
[2025-01-19] MEDS: DIVALPROEX NA *ER* EXTEND REL 500 MG TABLET.SA (FP) PO SCH (22:11)
[2025-01-19] MEDS: GABAPENTIN 300 MG CAPSULE PO SCH (22:11)
[2025-01-20 08:51] LABS: HEMATOCRIT 31.4 % (34.1-44.9); HEMOGLOBIN 9.7 g/dL (11.2-15.7); MCHC 30.9 g/dl (32.2-35.5); MEAN CELL VOLUME 91.5 fl (79.4-94.8); MEAN PLT VOLUME 9.7 fl (9.4-12.3); PLATELET COUNT 210 x10^3/uL (182-369); RDW 13.7 % (12.5-17.0)
[2025-01-20] MEDS: ASPIRIN COATED 81 MG TABLET.EC PO SCH (09:04)
[2025-01-20] MEDS: PRAMIPEXOLE DIHYDROCHLORIDE 0.5 MG TABLET PO SCH (09:04)
[2025-01-20 09:15] LABS: POTASSIUM 4.3 mmol/L (3.5-5.1)
[2025-01-20 09:24] LABS: BLOOD UREA NITROGEN 27.7 mg/dL (7-18); CALCIUM 8.8 mg/dL (8.5-10.1); MAGNESIUM 2.2 mg/dL (1.8-2.4)
[2025-01-20 09:27] LABS: CREATININE 0.9 mg/dL (0.55-1.3)
[2025-01-20 09:28] LABS: PHOSPHOROUS 3.7 mg/dL (2.5-4.9)
[2025-01-20] MEDS: amLODIPine BESYLATE 5 MG TABLET (FP) PO SCH (10:30)
[2025-01-20] MEDS ORDERED: amLODIPine BESYLATE 5 MG TABLET (FP) PO SCH (10:30)
[2025-01-21] MEDS: NIFEdipine E.R 60 MG TABLET PO SCH (06:19)
[2025-01-21 09:12] LABS: ABSOLUTE IMMATURE GRANULOCYTES 0.02 x10^3/uL (0.0-0.031); BASOPHILS # 0.02 x10^3/uL (0.01-0.08); EOSINOPHILS # 0.19 x10^3/uL (0.04-0.36); HEMATOCRIT 35.4 % (34.1-44.9); HEMOGLOBIN 10.9 g/dL (11.2-15.7); MCHC 30.8 g/dl (32.2-35.5); MEAN PLT VOLUME 9.2 fl (9.4-12.3); MONOCYTE # 0.41 x10^3/uL (0.24-0.86); MONOCYTE % 8.6 % (4.7-12.5); PLATELET COUNT 220 x10^3/uL (182-369); RDW 13.2 % (12.5-17.0)
[2025-01-21] MEDS: LOSARTAN POTASSIUM 50 MG TABLET PO SCH (09:12)
[2025-01-21] MEDS: ACETAMINOPHEN 500 MG TABLET (FP) PO ONE (23:16)
[2025-01-22 08:57] LABS: CHLORIDE 105 mmol/L (98-107); POTASSIUM 4.5 mmol/L (3.5-5.1); SODIUM 137 mmol/L (136-145)
[2025-01-22 09:03] LABS: CALCIUM 8.5 mg/dL (8.5-10.1)
[2025-01-22 09:04] LABS: ALBUMIN 2.8 g/dl (3.4-5.0); ANION GAP 2 mmol/L (4-13); BLOOD UREA NITROGEN 26.1 mg/dL (7-18); CO2 30 mmol/L (21-32); GLUCOSE,RANDOM 81 mg/dL (74-106)
[2025-01-22 09:07] LABS: CREATININE 1.1 mg/dL (0.55-1.3); SGOT/AST 16 U/L (15-37); SGPT/ALT < 6 U/L (13-61)
[2025-01-22 09:08] LABS: BILIRUBIN,TOTAL 0.4 mg/dL (0.2-1)
[2025-01-22 09:09] LABS: TOT PROT 6.3 g/dl (6.4-8.2)
[2025-01-22 09:10] LABS: ALK PHOS 70 U/L (45-117)
[2025-01-22] MEDS: POLYETHYLENE GLYCOL (HEALTHYLAX) 3350 17 GM PACKET PO SCH (12:05)
[2025-01-22] MEDS: ACETAMINOPHEN 500 MG TABLET (FP) PO ONE (12:06)
[2025-01-23 06:36] VITALS: RESP 18
[2025-01-23 09:50] VITALS: BP 106/66; PULSE 81; TEMP 97.7
== END 2025-01-23 11:48 | disposition home or self-care (01) | DRG 948 ==
LOC: JER 11:35 → JERBED 14:52 → J5S 19:25 → OBSVTOIN 01-20 12:55
PROVIDERS: ADMIT Student in an Organized Health Care Education/Training Program; ATTEND Internal Medicine
DX: R60.0 Localized edema (principal); I50.32 Chronic diastolic (congestive) heart failure; I13.0 Hypertensive heart and chronic kidney disease with heart failure and stage 1 through stage 4 chronic kidney disease, or unspecified chronic kidney disease; K21.9 Gastro-esophageal reflux disease without esophagitis; I25.10 Atherosclerotic heart disease of native coronary artery without angina pectoris; N18.9 Chronic kidney disease, unspecified; I48.0 Paroxysmal atrial fibrillation; E78.5 Hyperlipidemia, unspecified; G20.A1 Parkinson's disease without dyskinesia, without mention of fluctuations; Z95.0 Presence of cardiac pacemaker; E03.9 Hypothyroidism, unspecified
CPT/HCPCS: 0241U-QW; 36415; 71045-TC-FY; 74018-TC-FY; 80048; 80053; 81003; 82803; 82962; 83605; 83735; 83880; 84100; 84484; 85025; 85027; 85610; 85730; 86850; 86900; 86901; 87086; 93005; 93010; 93306-TC; 97116-GP; 97161-GP; 99285-25; G0378; J0131